=== PATIENT | female | born 1945 | race Hispanic/Latino ===

== ENCOUNTER 2018-11-27 09:58 | Outpatient (CLI) | payer MEDICARE | END 2018-11-27 09:59 | disposition home or self-care (01) | LOC: LAB 09:58 ==

== ENCOUNTER 2018-12-11 08:52 | Outpatient (CLI) | payer MEDICARE | END 2018-12-11 08:53 | disposition home or self-care (01) | LOC: RAD 08:52 | DX: Z12.31 Encounter for screening mammogram for malignant neoplasm of breast (principal) ==